=== PATIENT | female | born 1990 | race Two or more races ===

== ENCOUNTER 2019-09-05 10:13 | Outpatient (CLI) | payer OTHER | END 2019-09-05 10:20 | disposition home or self-care (01) | LOC: SONOGRAMA 10:13 | PROVIDERS: ATTEND Specialist | DX: N64.3 Galactorrhea not associated with childbirth (principal) ==

== ENCOUNTER 2019-09-17 10:50 | Outpatient (CLI) | payer OTHER | END 2019-09-17 10:54 | disposition home or self-care (01) | LOC: LAB 10:50 | PROVIDERS: ATTEND Specialist | DX: E22.1 Hyperprolactinemia (principal) ==

== ENCOUNTER 2020-03-03 19:05 | Emergency (ER) | payer OTHER ==
[~2020-03-03] VITALS: Ht 152.4 cm; Wt 52.2 kg
[2020-03-03] MEDS ORDERED: AMOXICILLIN 500 MG (19:59)
[2020-03-04] MEDS ORDERED: AMOX-CLAV 875-1 EACH PO (00:45)
[2020-03-04] MEDS ORDERED: KETO10TA2 PO (00:45)
[2020-03-04] MEDS ORDERED: MUPIROCIN22 GM TOP (00:45)
== END 2020-03-04 01:04 | disposition home or self-care (01) ==
LOC: ER 19:05
DX: L08.89 Other specified local infections of the skin and subcutaneous tissue (principal); S91.301S Unspecified open wound, right foot, sequela; S90.821S Blister (nonthermal), right foot, sequela; X58.XXXS Exposure to other specified factors, sequela

== ENCOUNTER → 2020-12-30 10:36 | Outpatient (CLI) | payer OTHER ==
[~2020-12-30 10:36] MED LIST: AMOX-CLAV 875-1 EACH PO; AMOXICILLIN 500 MG; KETO10TA2 PO; MUPIROCIN22 GM TOP
== END | disposition home or self-care (01) ==
LOC: LAB 10:36
PROVIDERS: ATTEND Specialist
DX: N39.0 Urinary tract infection, site not specified (principal)